=== PATIENT | male | born 1955 | race Caucasian/White ===

== ENCOUNTER 2018-12-28 07:26 | Inpatient (IN) | payer MEDICARE, OTHER ==
[2018-12-28] VITALS (29 sets, daily range): BP systolic 144–180; BP diastolic 69–101; PULSE 74–115; RESP 12–21; Ht 180.3 cm; Wt 73.0 kg
[~2018-12-28] VITALS: Ht 180.3 cm; Wt 73.0 kg
[2018-12-28] MEDS ORDERED: LACTATED RINGER'S 1,000 ML IV SCH (08:00)
[2018-12-28] MEDS ORDERED: LANSOPRAZOLE 30 MG CAP PO ONE (08:00)
[2018-12-28] MEDS ORDERED: ONDANSETRON 4 MG INJ IV ONE (08:00)
[2018-12-28] MEDS ORDERED: DEXAMETHASONE 4 MG/ML 1 ML INJ IV ONE (08:00)
[2018-12-28] MEDS ORDERED: TRANEXAMIC ACID 1GM/100ML(PMX) 100 ML PRE-OP X1 IVPB ONE (08:00)
[2018-12-28] MEDS ORDERED: TRANEXAMIC ACID 1GM/100ML(PMX) 100 ML INTRA-OP X1 IVPB ONE (08:00)
[2018-12-28] MEDS ORDERED: HIP PAIN COCKTAIL VANCO INJ SCH ×7 (08:00)
[2018-12-28] MEDS ORDERED: oxyCODONE (CR) 10 MG TAB [oxyCONTIN] PO ONE (08:00)
[2018-12-28] MEDS ORDERED: VANCOMYCIN 1 GM (PMX) 250 ML IVPB ONE (08:00)
[2018-12-28] MEDS ORDERED: ACETAMINOPHEN 500 MG TAB PO ONE (08:00)
[2018-12-28] MEDS ORDERED: CEFAZOLIN 1 GM INJ ONE (08:35)
[2018-12-28] MEDS ORDERED: GLYCOPYRROLATE 0.4 MG INJ ONE (08:35)
[2018-12-28] MEDS ORDERED: NEOSTIGMINE 3 MG/3 ML SYRINGE ONE (08:35)
[2018-12-28] MEDS ORDERED: ONDANSETRON 4 MG INJ ONE (08:35)
[2018-12-28] MEDS ORDERED: PROPOFOL 20 ML ONE (08:35)
[2018-12-28] MEDS ORDERED: ROCURONIUM 50 MG INJ ONE (08:35)
[2018-12-28] MEDS ORDERED: FENTAnyl 50 MCG/ML VIAL ONE (08:35)
[2018-12-28] MEDS ORDERED: MIDAZOLAM 1 MG/ML 2 ML INJ ONE (08:35)
[2018-12-28] MEDS ORDERED: DEXAMETHASONE 4 MG/ML 5 ML INJ ONE (08:35)
[2018-12-28] MEDS ORDERED: ACETAMINOPHEN 1000MG/100ML IV 100 ML IVPB ONE (09:30)
[2018-12-28] MEDS ORDERED: hydrALAzine 20 MG INJ ONE (09:43)
[2018-12-28] MEDS ORDERED: hydrALAzine 20 MG INJ IV ONE (10:00)
[2018-12-28] MEDS ORDERED: POLYMYXIN B 500000 UNIT INJ ONE (10:56)
--- NOTE | 2018-12-28 11:05 | PREAC ---
Date/Time of Note Date/Time of Note DATE: 12/28/18 TIME: 11:03 Anesthesia Eval and Record Evaluation Time Pre-Procedure Interview DATE: 12/28/18 TIME: 11:03 Age 63 Sex male NPO: 8 hrs Preoperative diagnosis LEFT HIP PRIMARY OA Planned procedure LEFT ANTERIOR TOTAL HIP ARTHROPLASTY Past Medical History Past Medical History: None Surgery & Anesthesia Issues No known issue Meds Anticoagulation: No Beta Maxi within 24 hr: No Reason Beta Maxi not given: Pt. not on B-Maxi No Active Prescriptions or Reported Meds Current Medications Lactated Ringer's 1,000 ml @ 125 mls/hr Q8H IV Last administered on 12/28/18at 09:51; Admin Dose 125 MLS/HR; Start 12/28/18 at 08:00; Stop 12/28/18 at 15:59 Ropivacaine/ Morphine Sulfate/ Clonidine HCl/ Epinephrine/ Ketorolac Tromethamine/ Vancomycin HCl/ Sodium Chloride INTRA-OP INJ ; Start 12/28/18 at 08:00 Meds reviewed: Yes Allergies Coded Allergies: cephalexin (Unverified Allergy, Unknown, 12/28/18) Allergies Reviewed: Yes Labs/Studies Labs Reviewed: Reviewed by anesthesiologist test: Negative Studies: ECG (LAHB), CXR (NAPD) Pre-procedure Exam Last vitals Vital Signs Date Temp Pulse Resp B/P (MAP) Pulse Ox O2 O2 Flow FiO2 Time Delivery Rate 12/28/18 103 180/101 10:16 (127) 12/28/18 98.1 16 98 Room Air 07:57 Airway: Adequate mouth opening, Adequate thyromental dist Mallampati: Mallampati II Teeth: Normal Lung: Normal Heart: Normal ASA Physical Status ASA physical status: 1 Emergency: None Planned Anesthetic General/MAC: ETT Neuraxial: Spinal Planned Pain Management Single shot nerve block, Parenteral pain med Pre-operative Attestations Prior to commencing anesthesia and surgery, the patient was re-evaluated, there was verification of: *The patient's identity *The results of appropriate recent lab work and preoperative vital signs *The above evaluation not changing prior to induction *Anesthetic plan, risk benefits, alternative and complications discussed with patient/family; questions answered; patient/family understands, accepts and wishes to proceed. Ankur Estrella M.D. December 28, 2018 11:05
--- NOTE | 2018-12-28 11:06 | HPN ---
Date/Time of Note Date/Time of Note DATE: 12/28/18 TIME: 11:06 Interval H&P Admission Note Pt. seen H&P reviewed: No system changes NICHOLAS JASSO MD December 28, 2018 11:06
[2018-12-28] MEDS ORDERED: morphine SULFATE/PF (10 MG/10 ML) INJ ONE (11:19)
[2018-12-28] MEDS ORDERED: BACITRACIN 50000 UNITS INJ IRR ONE (12:08)
[2018-12-28] MEDS ORDERED: POLYMYXIN B 500000 UNIT INJ IRR ONE (12:08)
[2018-12-28] MEDS ORDERED: TRANEXAMIC ACID 1GM/100ML(PMX) 100 ML ONE (12:39)
[2018-12-28] MEDS ORDERED: SUGAMMADEX SODIUM 200 MG/2 ML VIAL IV ONE (12:55)
--- NOTE | 2018-12-28 13:02 | SIPON ---
Date/Time of Note Date/Time of Note DATE: 12/28/18 TIME: 13:01 Operative Report Preoperative Diagnosis Left Hip Osteoarthritis Postoperative Diagnosis Same Operation/Procedure Performed Left Total Hip Arthroplasty Surgeon Latonya Wilburn MD customer care assistant Tyler Meade Anesthesia: spinal Estimated blood loss: other Transfusion Required none Specimen bone Grafts/Implants none Complications none LATONYA WILBURN MD December 28, 2018 13:02
--- NOTE | 2018-12-28 13:07 | OPR ---
Date/Time of Note Date/Time of Note DATE: 12/28/18 TIME: 13:05 Operative Report Free Text/Dictation DATE OF OPERATION: December 28, 2018 PREOPERATIVE DIAGNOSIS: Left hip osteoarthritis. POSTOPERATIVE DIAGNOSIS: Left hip osteoarthritis. PROCEDURES PERFORMED: 1. Left total hip arthroplasty. CPT code 50983. 2. Computer assisted navigational procedure, CPT code 74612. 3. Interpretation of AP Pelvis x-ray. 4. Interpretation of left hip, 2 views. SURGEON: Nicholas Jasso. BUNDLER: 1. Tyler Meade. ANESTHESIOLOGIST: Dr. Estrella ANESTHESIA: Spinal ESTIMATED BLOOD LOSS: 300 mL. COMPLICATIONS: None. SPECIMENS: Resected bone. DISPOSITION: PACU in stable condition. IMPLANT USED: A DePuy Corail size 10KA stem, 36/+1.5 delta ceramic femoral head, 54 mm [place] Cup, 36 mm liner COMPLICATIONS: None. DISPOSITION: To PACU in stable condition. INDICATION FOR PROCEDURE: This is an 63 year-old male with endstage osteoarthritis of the left hip who had failed nonoperative management. Risks, benefits, alternatives of surgical intervention were discussed with the patient and informed consent was obtained. The risks of surgery include but are not limited to infection, deep venous thrombosis, pulmonary embolism, leg length discrepancy, fracture, damage to neurovascular structures requiring repair, loosening of the prosthesis, wear of prosthesis, need for revision surgery, heart attack, stroke, need for blood epps sfusion, risks associated with anesthesia and even . DESCRIPTION OF PROCEDURE: The patient was met in the preoperative suite and the correct operative site was confirmed and marked. Patient was then brought into operating room. After induction of general anesthesia, the patient was placed in the supine position on the table. The left lower extremity was prepped and draped in the usual sterile fashion. Before starting, a timeout was taken to identify the correct operative site, the patients name and medical record number and to confirm the preoperative antibiotics consisting of 1 gram of IV Ancef, along with 1 gram of tranexamic acid were administered. At this point, an 8 cm incision was made approximately 2 cm lateral and 1 cm distal to the ASIS. The incision was carried down to the fascia. The fascia was then incised. Then, 2 Allis clamps were placed. The interval was then bluntly developed and the tensor fascia tomas was then retracted laterally. The lateral circumflex vessels were identified and coagulated. The anterior capsule was then visualized and a capsulotomy was performed. At this point, markings were made for the napkin ring osteotomy of the femoral neck. Using the saw the initial osteotomy was then made and completed with the use of an osteotome. A Jocelyn was then used to remove the napkin ring and a corkscrew was then placed in the femoral head and the head was then removed. The head was sized to 50 mm. Sequential reaming was begun with a 47 mm reamer, going up to a 53 mm reamer. A trial 54 mm cup was then impacted and the radlink was then used to determine the appropriate anteversion and abduction of the cup. The cup was noted to be in approximately 44 degrees of inclination, and 22 degrees of anteversion. The trial was then removed. The appropriate size cup was then placed and again the radlink was used to determine the inclination and anteversion, and was noted be unchanged. The 36 mm liner was then impacted into place and the final acetabular x-rays were taken which again demonstrated the cup to be in appropriate abduction and anteversion. At this point, the femoral lift was then used and the leg was then placed in external rotation, extension, and adduction. Retractors were placed and the femoral releases were performed using a box osteotome followed by a canal finder. Sequential broaching was begun with a 8 broach going up to a size 10 broach. The trial 10 mm standard offset stem along with a 36/+1.5 trial head and neck were placed. The hip was then reduced and taken through range of motion, noted to be stable in extension and external rotation of up to 110 degrees. AP x-rays of the pelvis and [] hip, 2 view x-rays were taken. The x-rays demonstrated the prosthesis to be in the correct position with equal leg le ngths. The trial components were then removed. The appropriate sized components were then placed. The hip was again reduced with unchanged stability and equal leg lengths and no fractures were seen. The hip was again taken through range of motion and noted to be stable to extension and external rotation. The wound was then thoroughly irrigated. The capsule and the fascia were closed using #1 Stratafix. The subcutaneous tissue was closed using 2-0 Vicryl and the skin with 4-0 Monocryl in subcuticular fashion and Steri-Strips were applied. There were no complications. Patient was awakened and taken to postoperative care unit in stable condition. Prior to transfer, the patient was noted to have equal leg lengths and a palpable dorsalis pedis pulse. POSTOPERATIVE CARE: Patient will be weightbearing as tolerated. Patient will work with physical therapy, and receive multimodal pain management.. Patient will receive two additional doses of IV Ancef along with aspirin 81 mg p.o. b.i.d. for 6 weeks. Patient will have SCDs while in the hospital. Upon discharge, patient will follow up in my office within 2 weeks postoperatively. NICHOLAS JASSO MD December 28, 2018 13:07
--- NOTE | 2018-12-28 13:10 | PAC ---
Date/Time of Note Date/Time of Note DATE: 12/28/18 TIME: 13:10 Post-Anesthesia Notes Post-Anesthesia Note Last documented vital signs Vital Signs Date Temp Pulse Resp B/P (MAP) Pulse Ox O2 O2 Flow FiO2 Time Delivery Rate 12/28/18 103 180/101 10:16 (127) 12/28/18 98.1 16 98 Room Air 07:57 Activity: WNL Respiratory function: WNL Cardiovascular function: WNL Mental status: Baseline Pain reasonably controlled: Yes Hydration appropriate: Yes Nausea/Vomiting absent: Yes Ankur Estrella M.D. December 28, 2018 13:10
[2018-12-28] MEDS ORDERED: MIDAZOLAM 1 MG/ML 2 ML INJ IV PRN (13:30)
[2018-12-28] MEDS ORDERED: MAGNESIUM HYDROXIDE 30ML CUP PO PRN (13:30)
[2018-12-28] MEDS ORDERED: MEPERIDINE 25 MG INJ IV PRN (13:30)
[2018-12-28] MEDS ORDERED: DIPHENHYDRAMINE 50 MG INJ IV PRN ×2 (13:30)
[2018-12-28] MEDS ORDERED: NALOXONE (0.4 MG/ML) INJ IV PRN ×2 (13:30)
[2018-12-28] MEDS: ONDANSETRON 4 MG INJ IV SCH ×2 (13:30→20:48)
[2018-12-28] MEDS ORDERED: EPHEDrine 25 MG/5 ML SYG IV PRN (13:30)
[2018-12-28] MEDS ORDERED: KETOROLAC 30 MG INJ IV PRN (13:30)
[2018-12-28] MEDS ORDERED: NA PHOSPHATE/BIPHOS 133 ML ENEMA PR PRN (13:30)
[2018-12-28] MEDS ORDERED: DOCUSATE SODIUM 100 MG CAP PO ONE (13:30)
[2018-12-28] MEDS ORDERED: HYDROmorphONE 1 MG/5 ML IV SYRINGE IV PRN ×3 (13:30)
[2018-12-28] MEDS ORDERED: ZOLPIDEM 5 MG TAB PO PRN (13:30)
[2018-12-28] MEDS ORDERED: IPRATROPIUM (NEB) 0.5 MG/2.5 ML AMP HHN PRN (13:30)
[2018-12-28] MEDS ORDERED: BISACODYL 10 MG SUPP PR PRN (13:30)
[2018-12-28] MEDS ORDERED: SENNA/DOCUSATE NA (8.6MG/50MG) TAB PO PRN (13:30)
[2018-12-28] MEDS ORDERED: NALBUPHINE HCL (10 MG/1 ML) INJ IV PRN (13:30)
[2018-12-28] MEDS ORDERED: HYDROmorphONE 0.5 MG/0.5 ML SYG IV PRN ×2 (13:30)
[2018-12-28] MEDS ORDERED: ONDANSETRON 4 MG INJ IV PRN ×2 (13:30)
[2018-12-28] MEDS ORDERED: OXYCODONE/ACETAMINOPHEN (5/325) TAB PO PRN ×2 (13:30)
[2018-12-28] MEDS ORDERED: TRIMETHOBENZAMIDE 100 MG/ML VIAL IM PRN ×2 (13:30)
[2018-12-28] MEDS ORDERED: ALBUTEROL 0.083% (NEB) 2.5 MG/3 ML AMP HHN PRN (13:30)
[2018-12-28] MEDS ORDERED: oxyCODONE 5 MG TAB PO PRN (13:30)
[2018-12-28] MEDS ORDERED: hydrALAzine 20 MG INJ IV PRN (13:30)
[2018-12-28] MEDS ORDERED: LABETALOL HCL 20MG INJ IV PRN (13:30)
[2018-12-28] MEDS ORDERED: FENTAnyl 50 MCG/ML VIAL IV PRN ×3 (13:30)
[2018-12-28] MEDS ORDERED: KETOROLAC 15 MG INJ IV PRN (13:30)
[2018-12-28] MEDS ORDERED: NACL 0.9% 3 ML SYG IV SCH (13:30)
[2018-12-28] MEDS: VANCOMYCIN 1 GM (PMX) 250 ML IVPB SCH (18:10)
[2018-12-28] MEDS: GABAPENTIN 100 MG CAP PO SCH ×2 (20:48→20:59)
[2018-12-29 00:13] VITALS: BP 115/73; PULSE 91; RESP 18
[2018-12-29] MEDS: ONDANSETRON 4 MG INJ IV SCH ×2 (01:30→07:30)
[2018-12-29] MEDS ORDERED: PANTOPRAZOLE (EC) 40 MG TAB PO SCH (06:00)
[2018-12-29] MEDS: VANCOMYCIN 1 GM (PMX) 250 ML IVPB SCH (06:36)
[2018-12-29 07:36] VITALS: BP 128/71; PULSE 85; RESP 18
[2018-12-29] MEDS: GABAPENTIN 100 MG CAP PO SCH ×2 (08:47→13:00)
[2018-12-29] MEDS ORDERED: ASPIRIN (EC) 81 MG TAB PO SCH (09:00)
[2018-12-29] MEDS ORDERED: DOCUSATE SODIUM 100 MG CAP PO SCH (09:00)
[2018-12-29] MEDS ORDERED: CELECOXIB 100 MG CAP PO SCH (09:00)
--- NOTE | 2018-12-29 11:38 | CONS ---
Assessment/Plan Assessment/Plan Hospital Course (Demo Recall) 63-year-old male who was brought in for elective left total knee arthroplasty f or whom we are consulted for medical management. 1. Post op urinary retention, s/p lal. -will plan to remove lal and see how patient does. Will also check PVR. -If patient is able to urinate and postvoid residual is greater than 200, patient will be cleared for discharge. 2. Reactive leukocytosis 3. Mild normocytic anemia Thank you for the consult we will follow with you Consultation Date/Type/Reason Admit Date/Time December 28, 2018 at 07:26 Date/Time of Note DATE: 12/29/18 TIME: 11:35 Hx of Present Illness This is a very pleasant 63-year-old male who was brought in for an elective left total hip arthroplasty due to severe left hip osteoarthritis. Procedure was done yesterday without immediate complications. However overnight the patient developed urinary retention and a Lal catheter had to be placed. He has been ambulance this morning however wants to know the Lla catheter can be removed. He does have a history of delayed bladder emptying over the last couple years, but he is never been told he has BPH has prostatic issues. Patient also has a history of kidney stones and tends to drink a lot of water to prevent recurrence. Otherwise he does not have any significant past medical history. He is an active man, does a lot of walking and hiking, is anxious to be back ho me. . 12 point review of system was done, no significant findings except that noted above Past Medical History Severe left hip osteoarthritis Delayed bladder emptying Home Meds No Active Prescriptions or Reported Meds Medications Current Medications Ropivacaine/ Morphine Sulfate/ Clonidine HCl/ Epinephrine/ Ketorolac Tromethamine/ Vancomycin HCl/ Sodium Chloride INTRA-OP INJ ; Start 12/28/18 at 08:00 Oxycodone HCl (Roxicodone) 5 mg Q4H PRN PO .PAIN; Start 12/28/18 at 13:30 Celecoxib (Celebrex) 100 mg BID PO Last administered on 12/29/18at 08:47; Admin Dose 100 MG; Start 12/29/18 at 09:00 Gabapentin (Neurontin) 100 mg TID PO Last administered on 12/29/18at 08:47; Admin Dose 100 MG; Start 12/28/18 at 21:00 Pantoprazole (Protonix Tab) 40 mg DAILY@06 PO ; Start 12/29/18 at 06:00 Docusate Sodium (Colace) 200 mg BID PO Last administered on 12/29/18at 08:47; Admin Dose 200 MG; Start 12/29/18 at 09:00; Stop 12/31/18 at 21:01 Simethicone (Mylicon) 80 mg TID PRN PO .GAS; Start 12/28/18 at 13:30 Senna/Docusate Sodium (Senokot-S) 2 tab BID PRN PO .CONSTIPATION; Start 12/28/18 at 13:30 Magnesium Hydroxide (Milk Of Mag) 30 ml HS PRN PO .CONSTIPATION; Start 12/28/18 at 13:30 Bisacodyl (Dulcolax Supp) 10 mg DAILY PRN TN .CONSTIPATION; Start 12/28/18 at 13:30 Sodium Biphosphate/ Sodium Phosphate (Fleet Enema) 133 ml DAILY PRN TN .CONSTIPATION; Start 12/28/18 at 13:30 Ketorolac Tromethamine (Toradol) 15 mg Q6H PRN IV .PAIN; Start 12/28/18 at 13:30 Naloxone HCl (Narcan) 0.2 mg Q2M PRN IV .RESP RATE; Start 12/28/18 at 13:30 IV Flush (NS 3 ml) 3 ml per protocol IV ; Start 12/28/18 at 13:30 Aspirin (Halfprin) 81 mg BID PO Last administered on 12/29/18at 08:47; Admin Dose 81 MG; Start 12/29/18 at 09:00 Hydromorphone HCl (Dilaudid) 0.2 mg Q2H PRN IV .PAIN 1-5; Start 12/28/18 at 13:30; Stop 12/29/18 at 11:45 Hydromorphone HCl (Dilaudid) 0.4 mg Q2H PRN IV .PAIN 6-10; Start 12/28/18 at 13:30; Stop 12/29/18 at 11:45 Ketorolac Tromethamine (Toradol) 30 mg Q6H PRN IV .PAIN 6-10; Start 12/28/18 at 13:30; Stop 12/29/18 at 11:45 Diphenhydramine HCl (Benadryl) 25 mg Q4H PRN IV .PRURITUS; Start 12/28/18 at 13:30; Stop 12/29/18 at 11:45 Nalbuphine HCl (Nubain) 10 mg Q4H PRN IV .PRURITUS; Start 12/28/18 at 13:30; Stop 12/29/18 at 11:45 Ondansetron HCl (Zofran Inj) 4 mg Q6H PRN IV .NAUSEA/VOMITING; Start 12/28/18 at 13:30; Stop 12/29/18 at 11:45 Trimethobenzamide HCl (Tigan) 200 mg Q6H PRN IM .NAUSEA/VOMITING; Start 12/28/18 at 13:30; Stop 12/29/18 at 11:45 Zolpidem Tartrate (Ambien) 5 mg HS MAY REPEAT X 1 PRN PO .INSOMNIA; Start 12/28/18 at 13:30; Stop 12/29/18 at 11:45 Naloxone HCl (Narcan) 0.2 mg Q2M PRN IV .RESP RATE; Start 12/28/18 at 13:30; Stop 12/29/18 at 11:45 Miscellaneous Information (* Miscellaneous Pharmacy Order) DURAMORPH: 0.2 MG SPI... GIVEN NEURAXIAL XX ; Start 12/28/18 at 13:30; Stop 12/29/18 at 11:45 Allergies: Coded Allergies: cephalexin (Unverified Allergy, Unknown, 12/28/18) Past Surgical History Tonsillectomy Eyelid surgery Colonoscopy Family History Significant Family History: heart disease (Who), cancer, other ( CVA) Social History Alcohol Use: none Smoking Status: Never smoker Drug Use: none Exam/Review of Systems Exam Vitals Vital Signs Date Temp Pulse Resp B/P (MAP) Pulse Ox O2 O2 Flow FiO2 Time Delivery Rate 12/29/18 97.3 85 18 128/71 96 07:36 (90) 12/28/18 Nasal 2.0 17:30 Cannula Intake and Output 12/28/18 12/28/18 12/29/18 1515:00 23:00 07:00 IntakeIntake Total 2400 ml 1300 ml OutputOutput Total 100 ml 1100 ml BalanceBalance 2300 ml 1300 ml -1100 ml Exam General: A&O x3, answering questions appropriately HEENT: NC/ AT. PERRL. EOM intact Neck: supple CVS: S1, S2, RRR. no murmurs. no pain on chest wall palpation Lungs: CTA b/l. no wheezing or rhonchi Abd: soft, nontender, +BS Ext: moving all extremities skin: no rashes Results Result Diagram: 12/29/188 12/29/188 Results 24hrs Laboratory Tests Test 12/29/18 04:48 12/29/18 07:57 White Blood Count 14.2 H Red Blood Count 4.07 L Hemoglobin 12.2 L Hematocrit 35.8 L Mean Corpuscular Volume 88.0 Mean Corpuscular Hemoglobin 30.0 Mean Corpuscular Hemoglobin Concent 34.1 Red Cell Distribution Width 12.4 Platelet Count 208 Mean Platelet Volume 9.7 Immature Granulocytes % 0.400 Neutrophils % 86.6 H Lymphocytes % 6.1 L Monocytes % 6.8 Eosinophils % 0.0 Basophils % 0.1 Nucleated Red Blood Cells % 0.0 Immature Granulocytes # 0.060 H Neutrophils # 12.3 H Lymphocytes # 0.9 Monocytes # 1.0 H Eosinophils # 0.0 Basophils # 0.0 Nucleated Red Blood Cells # 0.0 Prothrombin Time 14.3 Prothrombin Time Ratio 1.1 INR International Normalized Ratio 1.10 Sodium Level 138 Potassium Level 4.5 Chloride Level 107 Carbon Dioxide Level 24 Anion Gap 7 Blood Urea Nitrogen 20 Creatinine 0.77 Est Glomerular Filtrat Rate mL/min > 60 Glucose Level 139 Calcium Level 8.7 Lab Scanned Report REFERENCE LAB Medications Medication Current Medications Ropivacaine/ Morphine Sulfate/ Clonidine HCl/ Epinephrine/ Ketorolac Tromethamine/ Vancomycin HCl/ Sodium Chloride INTRA-OP INJ ; Start 12/28/18 at 08:00 Oxycodone HCl (Roxicodone) 5 mg Q4H PRN PO .PAIN; Start 12/28/18 at 13:30 Celecoxib (Celebrex) 100 mg BID PO Last administered on 12/29/18at 08:47; Admin Dose 100 MG; Start 12/29/18 at 09:00 Gabapentin (Neurontin) 100 mg TID PO Last administered on 12/29/18at 08:47; Admin Dose 100 MG; Start 12/28/18 at 21:00 Pantoprazole (Protonix Tab) 40 mg DAILY@06 PO ; Start 12/29/18 at 06:00 Docusate Sodium (Colace) 200 mg BID PO Last administered on 12/29/18at 08:47; Admin Dose 200 MG; Start 12/29/18 at 09:00; Stop 12/31/18 at 21:01 Simethicone (Mylicon) 80 mg TID PRN PO .GAS; Start 12/28/18 at 13:30 Senna/Docusate Sodium (Senokot-S) 2 tab BID PRN PO .CONSTIPATION; Start 12/28/18 at 13:30 Magnesium Hydroxide (Milk Of Mag) 30 ml HS PRN PO .CONSTIPATION; Start 12/28/18 at 13:30 Bisacodyl (Dulcolax Supp) 10 mg DAILY PRN TN .CONSTIPATION; Start 12/28/18 at 13:30 Sodium Biphosphate/ Sodium Phosphate (Fleet Enema) 133 ml DAILY PRN TN .CONSTIPATION; Start 12/28/18 at 13:30 Ketorolac Tromethamine (Toradol) 15 mg Q6H PRN IV .PAIN; Start 12/28/18 at 13:30 Naloxone HCl (Narcan) 0.2 mg Q2M PRN IV .RESP RATE; Start 12/28/18 at 13:30 IV Flush (NS 3 ml) 3 ml per protocol IV ; Start 12/28/18 at 13:30 Aspirin (Halfprin) 81 mg BID PO Last administered on 12/29/18at 08:47; Admin Dose 81 MG; Start 12/29/18 at 09:00 Hydromorphone HCl (Dilaudid) 0.2 mg Q2H PRN IV .PAIN 1-5; Start 12/28/18 at 13:30; Stop 12/29/18 at 11:45 Hydromorphone HCl (Dilaudid) 0.4 mg Q2H PRN IV .PAIN 6-10; Start 12/28/18 at 13:30; Stop 12/29/18 at 11:45 Ketorolac Tromethamine (Toradol) 30 mg Q6H PRN IV .PAIN 6-10; Start 12/28/18 at 13:30; Stop 12/29/18 at 11:45 Diphenhydramine HCl (Benadryl) 25 mg Q4H PRN IV .PRURITUS; Start 12/28/18 at 13:30; Stop 12/29/18 at 11:45 Nalbuphine HCl (Nubain) 10 mg Q4H PRN IV .PRURITUS; Start 12/28/18 at 13:30; Stop 12/29/18 at 11:45 Ondansetron HCl (Zofran Inj) 4 mg Q6H PRN IV .NAUSEA/VOMITING; Start 12/28/18 at 13:30; Stop 12/29/18 at 11:45 Trimethobenzamide HCl (Tigan) 200 mg Q6H PRN IM .NAUSEA/VOMITING; Start 12/28/18 at 13:30; Stop 12/29/18 at 11:45 Zolpidem Tartrate (Ambien) 5 mg HS MAY REPEAT X 1 PRN PO .INSOMNIA; Start 12/28/18 at 13:30; Stop 12/29/18 at 11:45 Naloxone HCl (Narcan) 0.2 mg Q2M PRN IV .RESP RATE; Start 12/28/18 at 13:30; Stop 12/29/18 at 11:45 Miscellaneous Information (* Miscellaneous Pharmacy Order) DURAMORPH: 0.2 MG SPI... GIVEN NEURAXIAL XX ; Start 12/28/18 at 13:30; Stop 12/29/18 at 11:45 PETER MENDEZ December 29, 2018 11:38
[2018-12-29 14:46] VITALS: BP 150/97; PULSE 78; RESP 18
== END 2018-12-29 17:25 | disposition home health service (06) | DRG 470 ==
LOC: REC 07:26 → MS1 14:20
PROVIDERS: ADMIT Orthopaedic Surgery Adult Reconstructive Orthopaedic Surgery; ATTEND Orthopaedic Surgery Adult Reconstructive Orthopaedic Surgery
PROC: 0SRB04A Replacement of Left Hip Joint with Ceramic on Polyethylene Synthetic Substitute, Uncemented, Open Approach (ICD-10-PCS; principal; 2018-12-28 10:30)
DX: M16.12 Unilateral primary osteoarthritis, left hip (principal); D64.9 Anemia, unspecified; D72.829 Elevated white blood cell count, unspecified
CPT/HCPCS: 72170; 73500; 73530; 80048; 85025; 85610; 88304; 88311; 97116; 97161; 97165; 97530; C1776; J0131; J0171; J0360; J0690; J1100; J1885; J2250; J2274; J2405; J2710; J2795; J3010; J3370